=== PATIENT | female | born 1985 | race Caucasian/White ===

== ENCOUNTER 2017-12-16 03:41 | Emergency (ER) | payer BC ==
[~2017-12-16] VITALS: Ht 160 cm; Wt 70.5 kg
[2017-12-16 03:49] VITALS: BP 153/80; PULSE 85; RESP 18; TEMP 98.4; O2SAT 98
--- NOTE | 2017-12-16 05:06 | PD ---
HPI Chief Complaint: Pain: Acute or Chronic Time Seen by Provider: 05:05 Travel History International Travel<30 days: No Contact w/Intl Traveler<30days: No Traveled to known affect area: No History of Present Illness HPI Patient is a 32-year-old female who is x-ray/CT intact who is here for [place] training.... Patient was awakened by a sensation of chest tightness palpitations and diaphoresis from sleep. Patient felt she was having a hard time breathing initially along with some episodes of cough and nausea but all of this resolved. However she was concerned enough since she had been in the long flight as to the possibility of blood clot to her lungs. Patient denies any associated alleviating or aggravating factors. Patient denies any associated factors such as fever, runny nose, sore throat, vomiting, diarrhea, headache/chest pain/back pain/abdominal pain/flank pain. Past medical history significant for GERD, D&C, right ovarian torsion, C- section 2, PFSH Past Medical History GERD: Yes Tetanus Vaccination: > 5 Years Influenza Vaccination: No ?: Not LMP: 12/16/17 : 7 Para: 4 Miscarriage: 3 : 0 Dilation and Curettage (D&C): Yes (x1) Past Surgical History Section: Yes (x2) Genitourinary Surgery: Yes (R ovary torsion) Social History Alcohol Use: No Tobacco Use: No Substance Use: No Allergies-Medications (Allergen,Severity, Reaction): Coded Allergies: No Known Allergies (Unverified , 12/16/17) Reported Meds & Prescriptions Reported Meds & Active Scripts Active Reported Zantac (Ranitidine HCl) 300 Mg Tab 300 Mg PO DAILY Review of Systems Except as stated in HPI: all other systems reviewed are Neg General / Constitutional: No: Fever Eyes: No: Visual changes HENT: No: Headaches Cardiovascular: Positive: Chest Pain or Discomfort Respiratory: No: Shortness of Breath Gastrointestinal: No: Abdominal Pain Genitourinary: No: Dysuria Musculoskeletal: No: Pain Skin: No Rash Neurologic: No: Weakness Psychiatric: No: Depression Endocrine: No: Polydipsia Hematologic/Lymphatic: No: Easy Bruising Physical Exam Narrative GENERAL: SKIN: Warm and dry. HEAD: Atraumatic. Normocephalic. EYES: Pupils equal and round. No scleral icterus. No injection or drainage. ENT: No nasal bleeding or discharge. Mucous membranes pink and moist. NECK: Trachea midline. No JVD. CARDIOVASCULAR: Regular rate and rhythm. RESPIRATORY: No accessory muscle use. Clear to auscultation. Breath sounds equal bilaterally. GASTROINTESTINAL: Abdomen soft, non-tender, nondistended. MUSCULOSKELETAL: Extremities without clubbing, cyanosis, or edema. No obvious deformities. NEUROLOGICAL: Awake and alert. No obvious cranial nerve deficits. Motor grossly within normal limits. Five out of 5 muscle strength in the arms and legs. Normal speech. PSYCHIATRIC: Appropriate mood and affect; insight and judgment normal. Data Data Last Documented VS Vital Signs Date Time Temp Pulse Resp B/P (MAP) Pulse Ox O2 Delivery O2 Flow Rate FiO2 12/16/17 05:15 19 99 Room Air 12/16/17 05:13 91 12/16/17 03:49 98.4 153/80 (104) Orders Orders Electrocardiogram (12/16/17 05:07) B-Type Natriuretic Peptide (12/16/17 05:07) Ckmb (Isoenzyme) Profile (12/16/17 05:07) Complete Blood Count With Diff (12/16/17 05:07) Comprehensive Metabolic Panel (12/16/17 05:07) Prothrombin Time / Inr (Pt) (12/16/17 05:07) Act Partial Throm Time (Ptt) (12/16/17 05:07) Troponin I (12/16/17 05:07) Ecg Monitoring (12/16/17 05:07) Iv Access Insert/Monitor (12/16/17 05:07) Oximetry (12/16/17 05:07) Ct Pulmonary Angiogram (12/16/17 05:07) Urinalysis - C+S If Indicated (12/16/17 05:07) Ed Urine Pregnancytest Poc (12/16/17 05:07) Drug Screen, Random Urine (12/16/17 05:07) Alcohol (Ethanol) (12/16/17 05:07) Salicylates (Aspirin) (12/16/17 05:07) Tylenol (Acetaminophen) (12/16/17 05:07) Ondansetron Odt (Zofran Odt) (12/16/17 05:15) D-Dimer (12/16/17 06:26) Beta Hcg (Quant/Titer) (12/16/17 05:20) Labs Laboratory Tests Test 12/16/17 05:20 White Blood Count 5.1 TH/MM3 Red Blood Count 4.97 MIL/MM3 Hemoglobin 14.6 GM/DL Hematocrit 42.9 % Mean Corpuscular Volume 86.3 FL Mean Corpuscular Hemoglobin 29.3 PG Mean Corpuscular Hemoglobin Concent 34.0 % Red Cell Distribution Width 13.1 % Platelet Count 317 TH/MM3 Mean Platelet Volume 7.4 FL Neutrophils (%) (Auto) 59.6 % Lymphocytes (%) (Auto) 29.7 % Monocytes (%) (Auto) 8.5 % Eosinophils (%) (Auto) 1.3 % Basophils (%) (Auto) 0.9 % Neutrophils # (Auto) 3.0 TH/MM3 Lymphocytes # (Auto) 1.5 TH/MM3 Monocytes # (Auto) 0.4 TH/MM3 Eosinophils # (Auto) 0.1 TH/MM3 Basophils # (Auto) 0.0 TH/MM3 CBC Comment DIFF FINAL Differential Comment Prothrombin Time 10.0 SEC Prothromb Time International Ratio 1.0 RATIO Activated Partial Thromboplast Time 26.4 SEC Blood Urea Nitrogen 11 MG/DL Creatinine 0.93 MG/DL Random Glucose 103 MG/DL Total Protein 7.9 GM/DL Albumin 4.1 GM/DL Calcium Level 8.5 MG/DL Alkaline Phosphatase 58 U/L Aspartate Amino Transf (AST/SGOT) 13 U/L Alanine Aminotransferase (ALT/SGPT) 36 U/L Total Bilirubin 0.3 MG/DL Sodium Level 141 MEQ/L Potassium Level 3.7 MEQ/L Chloride Level 109 MEQ/L Carbon Dioxide Level 20.4 MEQ/L Anion Gap 12 MEQ/L Estimat Glomerular Filtration Rate 69 ML/MIN Total Creatine Kinase 74 U/L Troponin I LESS THAN 0.02 NG/ML B-Type Natriuretic Peptide 17 PG/ML Human Chorionic Gonadotropin, Quant LESS THAN 1 MIU/ML Salicylates Level LESS THAN 1.7 MG/DL Acetaminophen Level LESS THAN 2.0 MCG/ML Ethyl Alcohol Level LESS THAN 3 MG/DL MDM Medical Decision Making Medical Screen Exam Complete: Yes Emergency Medical Condition: Yes Medical Record Reviewed: Yes Interpretation(s) EKG shows normal sinus rhythm, incomplete right bundle branch block, no evidence of any ST elevation RI pattern. Pulse ox shows excellent Pleth wave, room air oximetry reads 98-100 which is within normal limits and without any evidence of hypoxemia Differential Diagnosis STEMI versus non-STEMI versus pericardial effusion versus pleural effusion versus pneumothorax versus pulmonary edema versus pulmonary embolus versus pneumonia Narrative Course CBC shows no evidence of leukocytosis anemia or left shift, normal platelet count Coagulation profile is within normal limits Elect lites are all within normal limits Negative hCG quantitative First set of cardiac enzymes negative and beta natruretic peptide 17 which is negative. Tox screen negative for salicylates Tylenol and alcohol Patient refused to have a CT of chest to rule out PE, and also refused to stay long enough to see her d-dimer resulted AMA: The risks of leaving against medical advice without further evaluation treatment were discussed with the patient. These risks include cardiac dysfunction, cardiac dysrhythmia, possible heart attack, possible stroke or . The patient indicated understanding of these risks and appeared to have the capacity to make this decision. Diagnosis Primary Impression: Chris Altman MD Dec 16, 2017 05:06
[2017-12-16 05:15] VITALS: RESP 19; O2SAT 99
[2017-12-16] MEDS ORDERED: ZANT300T PO (05:15)
[2017-12-16] MEDS ORDERED: ONDANSETRON ODT 4 MG TAB PO ONE (05:15)
[2017-12-16 05:32] LABS: BASOPHIL % 0.9 % (0.0-2.0); EOSINOPHIL # 0.1 TH/MM3 (0-0.4); EOSINOPHIL % 1.3 % (0.0-4.0); HEMATOCRIT 42.9 % (35.0-46.0); HEMOGLOBIN 14.6 GM/DL (11.6-15.3); LYMPH % 29.7 % (9.0-44.0); LYMPHOCYTE # 1.5 TH/MM3 (1.0-4.8); MEAN CELL VOLUME 86.3 FL (80.0-100.0); MEAN CORPUSCULAR HEMOGLOBIN 29.3 PG (27.0-34.0); MEAN PLATELET VOLUME 7.4 FL (7.0-11.0); MONO % 8.5 % (0.0-8.0); MONOCYTE # 0.4 TH/MM3 (0-0.9); NEUT % 59.6 % (16.0-70.0); PLATELET COUNT 317 TH/MM3 (150-450); RED BLOOD COUNT 4.97 MIL/MM3 (4.00-5.30); RED CELL DISTRIBUTION WIDTH 13.1 % (11.6-17.2); WHITE BLOOD COUNT 5.1 TH/MM3 (4.0-11.0)
[2017-12-16 06:10] LABS: ALBUMIN 4.1 GM/DL (3.4-5.0); ALT (GPT) 36 U/L (10-53); AST (GOT) 13 U/L (15-37); BICARBONATE 20.4 MEQ/L (21.0-32.0); BLOOD UREA NITROGEN 11 MG/DL (7-18); CALCIUM 8.5 MG/DL (8.5-10.1); CHLORIDE 109 MEQ/L (98-107); CREATININE 0.93 MG/DL (0.50-1.00); GLOMERULAR FILTRATION RATE 69 ML/MIN (>89); GLUCOSE,RANDOM 103 MG/DL (74-106); SODIUM (NA) 141 MEQ/L (136-145)
[2017-12-16 06:11] LABS: ACETAMINOPHEN LESS THAN 2.0 MCG/ML (10.0-30.0)
[2017-12-16 06:13] LABS: ALKALINE PHOSPHATASE 58 U/L (45-117); TOTAL BILIRUBIN ADULT 0.3 MG/DL (0.2-1.0); TOTAL PROTEIN 7.9 GM/DL (6.4-8.2); TROPONIN I LESS THAN 0.02 NG/ML (0.02-0.05)
--- NOTE | 2017-12-16 17:40 | EKG ---
Date Performed: 12/16/2017 Time Performed: 05:17:43 PTAGE: 32 years EKG: Sinus rhythm INCOMPLETE RIGHT BUNDLE BRANCH BLOCK BORDERLINE ECG NO PREVIOUS TRACING DOCTOR: Sofia Diggs Interpretating Date/Time 12/16/2017 17:39:30
== END 2017-12-16 07:13 | disposition left against medical advice (07) ==
LOC: NEPC 03:41
DX: R07.89 Other chest pain (principal); R00.2 Palpitations; R61 Generalized hyperhidrosis; R05 Cough; R11.0 Nausea; I45.10 Unspecified right bundle-branch block; K21.9 Gastro-esophageal reflux disease without esophagitis; Z79.899 Other long term (current) drug therapy; Z53.21 Procedure and treatment not carried out due to patient leaving prior to being seen by health care provider
CPT/HCPCS: 80053; 80307; 82550; 83880; 84484; 84702; 85025; 85379; 85610; 85730; 93005; 99284